=== PATIENT | male | born 1980 | race Caucasian/White ===

== ENCOUNTER 2016-12-31 20:29 | Inpatient (IN) | payer BC ==
[~2016-12-31] VITALS: Ht 175.3 cm; Wt 80.0 kg
[~2016-12-31 20:29] MED LIST changes: -ACETAMINOPHEN 500 MG TAB PO SCH; -ATROPINE SULFATE 0.1 MG/ML 5ML SYR IV PRN; -BUPIVACAINE/EPINEPHRINE 0.5% MPF 1:200,000 30 ML VIAL ONE; -CEFAZOLIN 2000 MG/60 ML D5W 60 ML IV SCH; -CISATRACURIUM BESYLATE IV SOLN 2 MG/ML 10 ML VIAL ONE; -DEXAMETHASONE SOD INJ 4 MG/ML VIAL ONE; -EpHEDrine SULFATE INJ 50 MG/ML AMP IV PRN; -FENTANYL CITRATE INJ 50 MCG/1 ML 2 ML VIAL ONE; -GLYCOPYRROLATE INJ 0.2 MG/ML VIAL ONE; -HYDROmorphone INJ 2 MG/ML SYR/VIAL IV PRN; -HYDROmorphone INJ 2 MG/ML SYR/VIAL ONE; -KETAMINE HCL INJ 50 MG/ML 10 ML VIAL ONE; -LACTATED RINGER'S 1000ML 1,000 ML IV SCH; -LACTATED RINGER'S 1000ML IV SCH; -LIDOCAINE HCL 2% 2 ML VIAL (20MG/ML) ONE; -MIDAZOLAM HCL 1 MG/ML 2ML VIAL ONE; -NEOSTIGMINE METHYLSULFATE 5 MG/5 ML SYR ONE; -ONDANSETRON INJ 2 MG/ML 2 ML VIAL IV PRN; -ONDANSETRON INJ 2 MG/ML 2 ML VIAL ONE; -OXYCODONE/ACETAMINOPHEN 5-325 TAB PO PRN; -PHENYLEPHRINE 100MCG/ML 5ML SYR IV PRN; -PHENYLEPHRINE 100MCG/ML 5ML SYR ONE; -PROPOFOL IV EMULSION 10 MG/ML 20 ML VIAL IV ONE; -SODIUM CHLORIDE 0.9% 1000ML 1,000 ML IV SCH; -SODIUM CHLORIDE 0.9% INJ 10 ML VIAL ONE
[2016-12-31 21:03] LABS: BASO % 0.1 %; BASO ABS # 0.01 K/uL (0-0.2); COMPLETE YES; HEMATOCRIT 48.4 % (42-52); IG% 0.3 %; LYMPH % 6.4 %; LYMPH ABS # 0.74 K/uL (1.2-3.4); MEAN CELL VOLUME 86.3 fL (80-100); MEAN CORPUSCULAR HEMOGLOBIN 31.6 pg (25-34); MEAN CORPUSCULAR HGB CONC 36.6 g/dl (32-36); MEAN PLATELET VOLUME 10.1 fL (7.4-10.4); MONO % 1.4 %; NEUT % 91.8 %; PLATELET COUNT 193 K/uL (130-400); RED BLOOD COUNT 5.61 M/uL (4.7-6.1); WHITE BLOOD COUNT 11.63 K/uL (4.8-10.8)
[2016-12-31 21:17] LABS: URINE APPEARANCE CLEAR (CLEAR); URINE BILIRUBIN NEG (NEG); URINE COLOR DK YELLOW; URINE NITRITE NEG (NEG); URINE SPECIFIC GRAVITY 1.024 (1.000-1.030); UROBILINOGEN NEG (NEG); ZZUR CULT IF INDIC CLEAN CATCH NO
[2016-12-31 21:18] LABS: MANUAL MICROSCOPIC REQUIRED? NO; REVIEW REQ? NO
[2016-12-31 21:27] LABS: BUN/CREATININE RATIO 12.9 (10-20); CALCIUM 9.1 mg/dl (8.5-10.1); POTASSIUM 3.7 mmol/L (3.5-5.1)
[2016-12-31 21:32] LABS: ACETAMINOPHEN < 2 ug/ml (10-30)
[2016-12-31] MEDS ORDERED: ACETAMINOPHEN 500 MG TAB PO STA (21:33)
[2016-12-31 21:38] LABS: BENZODIAZEPINE, URINE POS (NEG); COCAINE,URINE NEG (NEG); PHENCYCLIDINE, URINE NEG (NEG)
[2016-12-31 21:38] LABS: ALB/GLOB RATIO 1.3 (0.9-2); THYROID STIMULATING HORMONE 0.762 uIu/ml (0.300-4.500)
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
[2016-12-31] MEDS ORDERED: NURSING VERBAL MED ORDER ONE (22:45)
[2016-12-31 22:52] VITALS: O2SAT 97
[2016-12-31] MEDS ORDERED: BISMUTH SUBSALICYLATE PER ML OMNICELL CHARGE PO PRN (23:45)
[2016-12-31] MEDS ORDERED: MAGNESIUM HYDROXIDE SUSP 30 ML UDC PO PRN (23:45)
[2016-12-31] MEDS ORDERED: hydrOXYzine HCL 25 MG TAB PO PRN ×2 (23:45)
[2016-12-31] MEDS ORDERED: ALUMINUM/MAGNESIUM SUSP 30 ML UDC PO PRN (23:45)
[2016-12-31] MEDS ORDERED: SODIUM CHLORIDE 0.65% NA SOLN 45 ML (OCEAN) PRN (23:45)
[2017-01-01 00:08] VITALS: BP 139/65; PULSE 78; TEMP 36.9; Ht 175.3 cm; Wt 80.0 kg
[2017-01-01] MEDS: KETOROLAC TROMETHAMINE 10 MG TAB PO SCH ×5 (00:30→22:53)
[2017-01-01] MEDS ORDERED: NURSING VERBAL MED ORDER ONE ×2 (00:45)
[2017-01-01] MEDS ORDERED: KETOROLAC TROMETHAMINE 10 MG TAB PO STA (00:56)
[2017-01-01 06:37] VITALS: BP_SYST 113; BP_SYST 115; BP_DIAS 67; BP_DIAS 70; PULSE 66; PULSE 86; TEMP 36.6
[2017-01-01] MEDS: ACETAMINOPHEN 500 MG TAB PO PRN ×2 (11:05→17:10)
--- NOTE | 2017-01-01 15:57 | HISTORY & PHYSICAL EXAMINATION ---
DATE OF ADMISSION: 12/31/2016 IDENTIFYING INFORMATION: This is a 36-year-old but gentleman who was admitted to the [facility] on a voluntary status to behavioral health unit after concern for expressed suicidal ideation in the same day unit where he had been admitted for biceps tendon repair on 12/31/2016. Multiple contacts yesterday with a psychiatry liaison nurse and ER attending regarding his admission to this unit and the documentation of these encounters was reviewed. History also obtained from the patient on interview with questionable reliability. CHIEF COMPLAINT: "I really never had any intention of doing anything to myself. I guess it was an attempt to manipulate her." HISTORY OF PRESENT ILLNESS: Reviewing the ER note from last evening, patient presented for mental health evaluation for possible suicidal ideation that became apparent when his showed up following his surgery. Per 302 petitioning statement by patient's , he had made suicidal threatening statements over the course of the past month via text message at times and had stated to her yesterday that he would go to a hotel and kill himself, which prompted the 302. Per psych liaison nurse note 01/01/2017 at 00:44, the patient had indicated to his about 1 month ago that he wanted a divorce, felt trapped in the marriage, and about 1-2 weeks later disclosed that he was having an affair and she stated that she did not feel it was safe for the patient to leave the hospital in his current state of mind. He was cooperative and he initially denied making any statements about harming himself, denied symptoms of depression, changes in appetite, concentration, problems with anxiety for psychotic symptoms, acknowledged marital discord and arguing and indicated that he had been living with his grandfather and stated that he was going to his sister's postoperatively for a few days and she was going to pick him up. The liaison nurse spoke with the patient's sister who voiced some concern about his behavior recently as reported by her [id number] and apparently she encouraged her [id number] to fill out the 302 petitioning statement before. The liaison returned to see the patient later and he began that interaction by apologizing for not being honest initially and stated that he probably did make some comments about "might as well kill himself" because she would not let him alone. He admitted to numerous times arguing with her and feeling like his back was against a wall and making irrational statements in anger. He indicated that their restorationist beliefs preclude divorce, that he has been for 12 years, known since they were 6 years old. Same day instructions from surgery were noted to keep dressing on for 2-3 days and then can be removed, can take a shower and Band-Aids applied subsequently. Sling should be worn 24 hours a day for 6 weeks, icepacks applied 20 on, 40 off as needed and he was given scripts for Percocet p.r.n., which he has refused and Toradol 10 mg q. 8 hours with food for 5 days, which he has accepted. On interview, the patient states that he has been dissatisfied with his marriage for quite some time. He seems to be more inclined to work long hours and then the impact of that causes his to feel uncared for, which has been a longstanding pattern. He reports he is working 80-90 hours per week at a [employer] and he quit that job and took a job at [employer] about a year ago to reduce his hours and "she still was not happy." He describes her calling him, tearful, wondering where he is, which pushes him further away. He recounts a story regarding disclosure of desire for divorce about 6 weeks ago and then disclosing his affair 1-2 weeks after that similarly as above. However, he does include new information that friends of he and his had discovered his affair and essentially had forced him to disclose the affair to his . When he told her about the affair he expected her to tell him to get out and essentially that would be the end of the marriage, however that is not what happened, which seems to be confusing and vexing for him. He states repeatedly that he has made the decision to leave the marriage. He does make some comments about feeling guilty about the children and knowing how hard it must be caring for all 4 of the children at home. He states that he does not want to hurt his , but has felt frustrated that she is not willing to let him go. He acknowledges that he has made suicidal threats to her, but adamantly states that these stressor were only an effort to manipulate her into letting him out of the marriage. He repeatedly states that he has never had an intention to harm himself and actually is hopeful about his future in trying something different as he feels that he is no longer the person that his as a high school sweetheart. He tells me that he confabulated the story about trying to kill himself with alcohol in the hotel and his girlfriend saving him as a reason for not disclosing her identity to his . He supports this by describing that his grandfather and grandmother were in later life and she only ever spoke badly about his girlfriend to anyone that would listen and he did not want that to happen to his current girlfriend. He is uncertain if that relationship will progress, but he seems to desire to protect it. He denies symptoms of depression including sleep disturbance, anhedonia, crying spells, changes in appetite. He denies that he has ever seriously considered harming himself or anyone else. Denies self-injurious behaviors. Denies panic attacks. Denies free floating excessive anxiety at baseline. Denies symptoms that would be consistent with OCD, PTSD, hannah or psychosis. He is not interested in taking any antidepressants. He did recently reach out to a [employer] counselor through his mormonism 1-2 weeks ago but found the advice that he was given there was too dogmatic and not what he needed to hear, however he would like to pursue another form of counseling. PAST PSYCHIATRIC HISTORY: Essentially none. He has 1 brief contact with a [employer] counselor in recent weeks as per HPI, otherwise has never seen a psychiatrist or therapist, has never been treated with psychotropic medications. Denies a history of suicide attempt or self-injurious behavior. PAST MEDICAL HISTORY: PCP is Dr. Jaramillo. CHRONIC MEDICAL CONDITIONS: None. SURGICAL HISTORY: Includes bicep tendon repair and surgery for broken nose secondary to sporting injury. He denies a history of head injury, seizure, stroke, loss of consciousness. Denies history of obesity, hypertension, diabetes, cardiovascular disease, dyslipidemia. HOME MEDICATIONS: none. Currently prescribed Toradol 10 mg q. 8 hours t.i.d. x5 days following tendon repair. ALLERGIES: No known drug allergies. SUBSTANCE ABUSE HISTORY: The patient is a never smoker. He describes drinking 1-2 drinks a few times per month, unable to recall the last time of intoxication. Denies history of eye medical technologist. Denies history of feeling guilty, social or legal ramifications of alcohol use, never for a history of rehab. Denies any history of recreational drug use. SOCIAL HISTORY: The patient reports parents were somewhat demanding and can be kind of emotionally cool. 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 Denies history. Denies legal history, has never been arrested. 12 years. They were high school sweethearts. He has known her since he was 6 years old. They have a home in [place] that they share with their 2 adopted children, ages 5 and 5 adopted as an infant and there are 2 foster children, ages 18 months and 6 months as well in the home. He has been staying with his grandfather who lives in [place]. He attends [employer] weekly and identifies as Methodist. He denies any psychological history including abuse. FAMILY HISTORY: Negative for psychiatric history. He reports there is a history of diabetes in maternal grandmother. Otherwise, he denies a family history of obesity, hypertension, diabetes, cardiovascular disease, dyslipidemia or neurological illness. REVIEW OF SYSTEMS: Notable for mild discomfort at surgical site. Otherwise, 10-point review of systems negative except as per HPI. VITAL SIGNS: This morning temperature 36.6, pulse 66, respirations 16, blood pressure 115/67. LABORATORY DATA: Labs reviewed from time of admission, he shows a trace leukocytosis at 11.63, H&H within normal limits, platelets within normal limits. Chem panel showed only a slightly elevated random glucose of 154. TSH normal at 0.762. Toxicology panel was positive for opiates and benzodiazepines, which I believe are likely secondary to his anesthesia. PHYSICAL EXAMINATION: Reviewed from ER completed by Dr. Mcneal and felt appropriate for admission to behavioral health unit. MENTAL STATUS EXAMINATION: The patient is a reasonably well groomed gentleman whose head is shaved. He makes good eye contact. He is participatory in interview. He tends to speak rather abruptly and at times attempts to oversleep the interview. He demonstrates use of language within normal limits and articulation is good. He is not necessarily pressured in his speech but he is somewhat hyperverbal. Thought process appears without obvious delusions or loosening of associations. He does episodically apologize for things that he says. Thought content is negative for expressed suicidal or homicidal ideation. He does express some feelings of guilt and frustration regarding his marriage and circumstances. He denies being hopeless. There is no evidence of hallucinations. Insight appears fair. Impulse control appears likely below his typical baseline. Estimated level of intelligence at least average. Memory grossly intact in all spheres. Motor activity is negative for tremor or dyskinesia. She ambulates without assistance. He is wearing an arm sling over his left arm and appears in no acute distress. ASSESSMENT: This is a 36-year-old gentleman who desires to divorce his current and describes feeling trapped in that relationship. He postulates that she is trying to "reek havoc" for his refusal to recommit himself to that relationship at the present time. He adamantly denies that he has intended to harm himself or anyone else, but does acknowledge that he has made suicidal comments which he states were a "effort to manipulate her." DIAGNOSES: Mood disorder, unspecified; rule out adjustment reaction; partner relational problem. PLAN: 1. The patient admitted on a voluntary status and he will be encouraged to participate in unit programming as appropriate. 2. The patient does not appear to necessarily require pharmacologic intervention additionally for mood, but does require some support emotionally in a nonjudgmental way and assistance with decision making in efforts to reduce the emotional tension between he and his . 3. The patient was advised to refrain from any further alcohol use. 4. The patient will be maintained on the locked unit while we continue to explore self-harm potential. 5. The patient will be continued on the Toradol for postoperative pain and inflammation as directed by the surgeon. He will require outpatient followup for that. [id number] MTDD
[2017-01-02] MEDS: KETOROLAC TROMETHAMINE 10 MG TAB PO SCH ×3 (06:06→21:49)
[2017-01-02 06:38] VITALS: BP_SYST 127; BP_SYST 135; BP_DIAS 78; BP_DIAS 82; PULSE 73; PULSE 76; TEMP 36.5
[2017-01-02] MEDS: ACETAMINOPHEN 500 MG TAB PO PRN ×2 (12:21→23:43)
--- NOTE | 2017-01-02 12:22 | Psychiatric Progress Notes ---
Progress Note Date of Service Jan 02, 2017. Chief Complaint "To be honest I don't really think I need to be here. I'm trying to make the best of it." Subjective Patient was seen & assessed interval progress reviewed with Treatment Team. No acute events overnight. Continues to deny any suicidal ideation. As admitted to frustration with Aleta and feedback from advent members regarding his desire for divorce. He was visited by girlfriend last evening which reportedly went well and he showed a very bright affect in her presence. He is willing to meet with his sister and brother and arrangements are in place for family meeting tomorrow. On interview this morning he denies concerns apart from how long he will be here in the hospital. He does not perceive a significant therapeutic value so far. Reviewed admission circumstances and he expresses willingness for family meeting to facilitate communication and give us an opportunity to potentially identify concerns that are in his blind spot before discharge. He continues to deny any suicidal ideation and maintains that he was never actually thinking about harming himself. The shoulder is mildly uncomfortable. He is wearing his arm sling. Tolerating Toradol. Reviewed that he has been very active and reflected that he tends to be somewhat abrupt conversationally and I queried him again regarding signs and symptoms of hypomania or hannah. He was not able to readily identify a history of obvious mood cycles and does not perceive that his goal-directed activity and level of energy at baseline is abnormal. Review of Systems Constitutional: No fever Musculoskeletal: + problem reported (postsurgical pain mild) Psychiatric: No depression symptoms Sleep Information Total Hours of Sleep: 6.00 Meal Information Percent of Breakfast Consumed: 100 Percent of Lunch Consumed: 100 Percent of Dinner Consumed: 100 Mental Status Exam During interview pt is: alert and oriented, cooperative Appearance: appropriately dressed, appropriately groomed Eye contact is: good Motor behavior is: no abnormal motor movements Speech: other (speech is not pressured but can be abrupt and tends to interrupt ) Affect: other (calm) Mood is: other (pretty good) Thought process: goal directed, linear, logical, clear, coherent Thought content: reality based without delusions Suicidal thought are: denied Homicidal thoughts are: denied Hallucinations: denies auditory, denies visual Cognition: memory grossly intact, attention grossly intact, language grossly intact Intelligence estimated to be: average Insight: fair Judgement: fair Plan (1) Mood disorder 01/01 1. The patient admitted on a voluntary status and he will be encouraged to participate in unit programming as appropriate. 2. The patient does not appear to necessarily require pharmacologic intervention additionally for mood, but does require some support emotionally in a nonjudgmental way and assistance with decision making in efforts to reduce the emotional tension between he and his . 3. The patient was advised to refrain from any further alcohol use. 4. The patient will be maintained on the locked unit while we continue to explore self-harm potential. 5. The patient will be continued on the Toradol for postoperative pain and inflammation as directed by the surgeon. He will require outpatient followup for that. 01/02 - Patient continues to deny suicidal ideation. No clear indication for additional pharmacotherapy. We'll plan for family meeting with siblings tomorrow after which, if clinical status remains stable, can consider discharge with recommendation for outpatient psychotherapy follow-up Visit Code E&M Code: 93075 Data Vital Signs Last 24 Hrs: Date Time Temp Pulse Resp B/P (MAP) Pulse Ox O2 Delivery O2 Flow Rate FiO2 01/02/17 06:38 36.5 73 18 127/78 76 135/82 Meds Administered Last 24 Hrs: Meds Administered (Past 24Hrs) Medications (Trade) Dose Ordered Sig/Kianna Route Start Time Stop Time Status Last Admin Dose Admin Acetaminophen (Tylenol Tab) 1,000 mg NOW STAT PO 12/31/16 21:33 12/31/16 21:35 DC 12/31/16 21:50 1,000 MG Acetaminophen (Tylenol Tab) 1,000 mg Q6H PRN PO 12/31/16 23:45 01/30/17 23:44 01/01/17 17:10 1,000 MG Ketorolac Tromethamine (Toradol Tab) 10 mg Q8 PO 01/01/17 06:00 01/06/17 05:59 01/02/17 06:06 10 MG
[2017-01-03] MEDS: KETOROLAC TROMETHAMINE 10 MG TAB PO SCH ×2 (06:01→12:59)
[2017-01-03 06:59] VITALS: BP_SYST 115; BP_SYST 123; BP_DIAS 72; BP_DIAS 75; PULSE 68; PULSE 71; TEMP 36.3
[2017-01-03] MEDS: ACETAMINOPHEN 500 MG TAB PO PRN (09:03)
--- NOTE | 2017-01-03 10:19 | Discharge Instructions ---
Discharge Information Report Includes Report will include the: Discharge Instructions & Summary Admission Admission Date / Time: Dec 31, 2016 at 22:40 Reason for Admission: Mood Disorder Nos Discharge Discharge Diagnosis / Problem: Adjustment disorder with depressed mood Condition at Discharge: Good Discharge Goals Goal(s): Improve function, Improve disease control, Learn about illness, Therapeutic intervention Activity Recommendations Activity Limitations: per Instructions/Follow-up section (See surgical discharge instructions) . Instructions / Follow-Up Instructions / Follow-Up . SPECIAL CARE INSTRUCTIONS: 1. Follow through with your scheduled aftercare appointments. If unable to keep an appointment, please call to reschedule. 2. Take your medication only as prescribed. Medication should not be changed or stopped without the approval of your doctor. In the event of worsening symptoms or concerns about side effects, contact your doctor immediately. 3. Utilize new healthy coping skills, anger management skills, and stress management skills learned during your hospitalization. Journal feelings and process them with a support person. Identify stressors or situations that may result in relapse, deterioration or inappropriate behaviors and develop a plan to deal with those issues. 4. If your coping skills are ineffective and you are in crisis, contact your outpatient providers for direction. If unable to reach your providers, please call the CAN HELP LINE AT or go to the closest Emergency Room. 5. Avoid alcohol and un-prescribed drugs. 6. You have been provided with the Mental Health Advance Directives Pamphlet for your review. AFTERCARE APPOINTMENTS: * Please call your insurance company prior to your scheduled appointment to confirm your aftercare providers are covered. Take your insurance information to your appointments. . Discharge / Aftercare Planning . Follow-Up Care Plan for Follow-Up Care: See above. Current Hospital Diet Patient's current hospital diet: Regular Diet Discharge Diet Recommended Diet: Regular Diet Procedures Procedures Performed: No Pending Studies Pending Studies at Discharge: No Medical Emergencies . Who to Call and When: Medical Emergencies: For questions or emergencies related to your hospital stay, please contact the Inpatient Behavioral Health Unit at [phone]. A strategic client executive is on-call 15/11 for the Behavioral Health Unit for emergencies At any time you feel your situation is an emergency, you may also call 911 immediately. . Non-Emergent Contact Non-Emergency issues call your: Primary Care Provider, Therapist Past History Medical & Surgical History: (1) H/O shoulder surgery Advance Directives Existing Advance Directive: No Do You Have an Existing Mental: No Existing Living Will: No Existing Power of Automation Machine Operator: No Advance Directives Info Given: To Pt/S.O. Advance Directives Reason: Declines as Mental Health Visit. Discharge Summary Admission HPI Per the Admitting provider: Please see admission H&P. Admission Exam Per the Admitting provider: Please see admission H&P. Hospital Course (1) Mood disorder 01/01 1. The patient admitted on a voluntary status and he will be encouraged to participate in unit programming as appropriate. 2. The patient does not appear to necessarily require pharmacologic intervention additionally for mood, but does require some support emotionally in a nonjudgmental way and assistance with decision making in efforts to reduce the emotional tension between he and his . 3. The patient was advised to refrain from any further alcohol use. 4. The patient will be maintained on the locked unit while we continue to explore self-harm potential. 5. The patient will be continued on the Toradol for postoperative pain and inflammation as directed by the surgeon. He will require outpatient followup for that. 01/02 - Patient continues to deny suicidal ideation. No clear indication for additional pharmacotherapy. We'll plan for family meeting with siblings tomorrow after which, if clinical status remains stable, can consider discharge with recommendation for outpatient psychotherapy follow-up 01/03 - Most appropriate diagnosis is Adjustment disorder with depressed mood, as doesn't meet criteria for MDD. No indication for medication. - Family meeting with brother and sister scheduled for today. Recommend referral for outpatient psychotherapy. - Recommend no alcohol due to risk of worsening mood and impulsivity. (2) H/O shoulder surgery Follow surgeon's discharge instructions, and follow up with them. Risk Factors Assessment Male: Yes : Yes /single/: No Higher / Fall in social status: No Access to guns: No Health problems: No Mental Health Diagnoses: No Substance use disorders: No Previous attempt: No Family history of suicide: No Previous psychiatric stay: No Hopelessness: No Smoker: No Protective Factors Assessment Orthodox beliefs: Yes : Yes Responsible for young children: Yes Employed: Yes Stable relationships: Yes Supportive family: Yes Absence of risk factors above: Yes (risk factors were mitigated by admission to the inpatient unit, assessing for the presence of an Riner I psychiatric disorder (specifically depression), involving the patient in groups and therapy on the unit, family meeting with his sister and brother who are his support network, referring him for outpatient therapy, working on healthy coping skills and a discharge safety plan. He has consistently denied symptoms of major depression and suicidal thoughts here, is eating, sleeping, and performing ADLs independently, and is requesting discharge. As he is no longer at acute risk of harm to himself, he can be managed as an outpatient at this time.) Day of Discharge Assessment Hospital course: On admission, the patient denied symptoms consistent with a major depressive disorder, and no medications were indicated nor started. He discussed the stressors that led to the suicidal statements he made to his , including recently disclosing his affair, and wanting to end the marriage. He stated that his suicidal comments were made in order to manipulate his , as she has not wanted to let him go. He continued to deny suicidal thoughts throughout his stay, attended and participated in groups, interacted appropriately with staff and peers, and performed ADLs independently. He talked about his frustration with his feedback from caodaism members regarding his desire for divorce and their unwillingness to support that. His girlfriend visited him on the unit, and staff reported he had bright affect in her presence. He was willing for a meeting with his brother and sister. Day of discharge assessment: The patient continues to report that his mood is "good," and denies suicidal thoughts. He states that he believes his statements to his were taken out of context and triggered by the stress in their relationship, and believes that his completed a 302 petition in part because she was angry at him. He states he is trying to make the best of being in the hospital, although does not feel he needs to be here, and denies that he ever had a plan or intent to harm himself. He states he is planning to live with his sister after discharge , and his family is supportive. He is willing to follow-up with a therapist. He has not spoken to his since admission, and says he plans to use a family friend as a "spare person" when talking with her in the future. He is requesting discharge today after his family meeting. He denies any safety concerns with leaving the hospital. Well nourished, well developed WM appearing stated age. Casually dressed and adequately groomed. Calm and cooperative. Seated in NAD, with fair eye contact and no abnormal movements. Speech is normal rate, volume, and tone. Mood is "trying to make the best of it," and affect is stable and congruent. Thoughts are linear, logical and goal directed. The patient denied suicidal and homicidal ideation and was able to safety plan. No paranoia, delusions, or hallucinations, and did not appear to be responding to internal stimuli. Cognition was grossly intact. Alert and oriented to person, place and time. Intelligence is consistent with level of education. Insight and and judgment are fair. Laboratory Test 12/31/16 20:42 12/31/16 21:00 White Blood Count 11.63 Red Blood Count 5.61 Hemoglobin 17.7 Hematocrit 48.4 Mean Corpuscular Volume 86.3 Mean Corpuscular Hemoglobin 31.6 Mean Corpuscular Hemoglobin Concent 36.6 Platelet Count 193 Mean Platelet Volume 10.1 Neutrophils (%) (Auto) 91.8 Lymphocytes (%) (Auto) 6.4 Monocytes (%) (Auto) 1.4 Eosinophils (%) (Auto) 0.0 Basophils (%) (Auto) 0.1 Neutrophils # (Auto) 10.69 Lymphocytes # (Auto) 0.74 Monocytes # (Auto) 0.16 Eosinophils # (Auto) 0.00 Basophils # (Auto) 0.01 RDW Standard Deviation 38.3 RDW Coefficient of Variation 12.0 Immature Granulocyte % (Auto) 0.3 Immature Granulocyte # (Auto) 0.03 Sodium Level 136 Potassium Level 3.7 Chloride Level 105 Carbon Dioxide Level 24 Anion Gap 7.0 Blood Urea Nitrogen 13 Creatinine 1.00 Est Creatinine Clear Calc Drug Dose 103.2 Estimated GFR () 112.5 Estimated GFR (Non- 97.1 BUN/Creatinine Ratio 12.9 Random Glucose 154 Calcium Level 9.1 Total Bilirubin 0.8 Aspartate Amino Transferase (AST) 17 Alanine Aminotransferase (ALT) 28 Alkaline Phosphatase 76 Total Protein 6.8 Albumin 3.9 Globulin 2.9 Albumin/Globulin Ratio 1.3 Thyroid Stimulating Hormone (TSH) 0.762 Salicylates Level < 1.7 Acetaminophen Level < 2 Ethyl Alcohol mg/dL < 3.0 Urine Color DK YELLOW Urine Appearance CLEAR Urine pH 6.0 Urine Specific [place] 1.024 Urine Protein NEG Urine Glucose (UA) NEG Urine Ketones 1+ Urine Occult Blood NEG Urine Nitrite NEG Urine Bilirubin NEG Urine Urobilinogen NEG Urine Leukocyte Esterase NEG Urine Synthetic Stimulants Pending Urine Opiates Screen POS Urine Codeine Confirmation (GC/MS) Pending Urine Morphine Confirm (GC/MS) Pending Urine Hydrocodone Confirm (GC/MS) Pending Urine Norhydrocodone Pending Urine Noroxycodone Pending Urine Oxycodone Confirm (GC/MS) Pending Urine Oxymorphone Confirm (GC/MS) Pending Urine Methadone, Qualitative NEG Urine Hydromorphone Confirm (GC/MS) Pending Urine Barbiturates NEG Urine Phencyclidine (PCP) Level NEG Ur Amphetamine/Methamphetamine NEG MDMA (Ecstasy) Screen NEG Urine Hydroxyalprazolam Confirm Pending Urine Benzodiazepines Screen POS 7-Amino Clonazepam Level Pending Urine Nordiazepam Confirmation Pending Urine Hydroxyethylflurazepam Level Pending Urine Lorazepam (GC/MS) Pending Urine Oxazepam Confirm (GC/MS) Pending Urine Temazepam Confirmation Pending Urine Hydroxytriazolam Confirmation Pending Urine Hydroxymidazolam Confirmation Pending Urine Cocaine Metabolite NEG Cannabinoids Comment Pending Urine Synthetic Cannabinoids Pending Ur Synthetic Cannabinoids Confirm Pending Urine Marijuana (THC) NEG Total Time Total Time Spent (min): Greater than 30 minutes Total Time Included: examination of the patient, discharge planning, medication reconciliation Tobacco Cessation at Discharge Smoking Status: Never Smoker FDA approved Prescription: non-smoker
[2017-01-03 11:33] LABS: COD UR NEGATIVE NG/ML (CUTOFF=50); HYDROCOD UR NEGATIVE NG/ML (CUTOFF=50); HYDROMOR UR 861 NG/ML (CUTOFF=50); HYDROXYETHYLFLURAZEPAM CONF NEGATIVE NG/ML (CUTOFF=50); HYDROXYMIDAZOLAM >2000 NG/ML (CUTOFF=50); HYDROXYTRIAZOLAM CONF NEGATIVE NG/ML (CUTOFF=50); MORPHINE UR 55 NG/ML (CUTOFF=50); NORHYDROCODONE CONF UR NEGATIVE NG/ML (CUTOFF=50); OXYMORPH UR NEGATIVE NG/ML (CUTOFF=50); TEMAZEPAM CONF NEGATIVE NG/ML (CUTOFF=50)
[2017-01-09 11:37] LABS: SYNTHETIC CANNABINOIDS QL URIN NEGATIVE (Negative)
== END 2017-01-03 13:15 | disposition home or self-care (01) | DRG 881 ==
LOC: EDBD 20:29 → EDSEX 20:29 → C.EDA 20:31 → C.MHU 22:40
PROVIDERS: ADMIT Student in an Organized Health Care Education/Training Program; ATTEND Student in an Organized Health Care Education/Training Program
DX: F43.21 Adjustment disorder with depressed mood (principal); R45.851 Suicidal ideations; Z47.89 Encounter for other orthopedic aftercare; Z63.5 Disruption of family by separation and divorce; Z98.890 Other specified postprocedural states

== ENCOUNTER → 2016-12-31 | Day surgery (SDC) | payer BC ==
[2016-12-30 09:04] VITALS: BMI 26.0
--- NOTE | 2016-12-30 17:19 | HISTORY & PHYSICAL EXAMINATION ---
DATE OF ADMISSION: 12/31/2016 CHIEF COMPLAINT: Left pectoralis major tendon rupture. HISTORY OF PRESENT ILLNESS: Mark is a pleasant 36-year-old male, who was bench pressing on February 19 when he felt a pop in his left chest. He noticed an abnormality with a deformity of his pec. He came to my office and I sent him for an MRI with concerns over pectoralis tendon rupture. The MRI confirmed the tendon rupture off the humeral shaft and he has elected to proceed with a pectoralis tendon repair. PAST MEDICAL HISTORY: Denies. PAST SURGICAL HISTORY: Septoplasty. ALLERGIES: None. MEDICATIONS: None. FAMILY HISTORY: Noncontributory. SOCIAL HISTORY: He is . He has 1-2 drinks per week. He denies any tobacco or IV drug use. He is active. REVIEW OF SYSTEMS: He complains of left chest pain. All other pertinent review of systems are negative. PHYSICAL EXAMINATION: GENERAL: He is awake, alert and oriented x3. He is in no apparent distress. He is very pleasant. HEENT: Pupils are equal, round and reactive to light. Extraocular motion intact. Oral mucosa is pink and moist. HEART: Regular rate per radial pulse. LUNGS: Katrina symmetrically bilaterally with no audible breath sounds. ABDOMEN: Soft, nontender, and nondistended. MUSCULOSKELETAL: On physical examination of the left chest, he has a significant abnormality. There is an area of ecchymosis in the left axillary region. He has a full range of motion and strength of the shoulder. MRI of the left shoulder does show complete pectoralis tendon rupture and the tendon torn directly off the humeral shaft. IMPRESSION: Left pectoralis tendon rupture. PLAN: We will proceed with an open pectoralis tendon repair. Postoperatively, he will be placed in an arm sling and discharged to home on oral pain medications.
[~2016-12-31] VITALS: Ht 175.3 cm; Wt 79.8 kg
[~2016-12-31] MED LIST: ACETAMINOPHEN 500 MG TAB PO SCH; ASPI-390 PO; ATROPINE SULFATE 0.1 MG/ML 5ML SYR IV PRN; BUPIVACAINE/EPINEPHRINE 0.5% MPF 1:200,000 30 ML VIAL ONE; CEFAZOLIN 2000 MG/60 ML D5W 60 ML IV SCH; CISATRACURIUM BESYLATE IV SOLN 2 MG/ML 10 ML VIAL ONE; DEXAMETHASONE SOD INJ 4 MG/ML VIAL ONE; EpHEDrine SULFATE INJ 50 MG/ML AMP IV PRN; FENTANYL CITRATE INJ 50 MCG/1 ML 2 ML VIAL ONE; GLYCOPYRROLATE INJ 0.2 MG/ML VIAL ONE; HYDROmorphone INJ 2 MG/ML SYR/VIAL IV PRN; HYDROmorphone INJ 2 MG/ML SYR/VIAL ONE; KETAMINE HCL INJ 50 MG/ML 10 ML VIAL ONE; KETO10TA PO; LACTATED RINGER'S 1000ML 1,000 ML IV SCH; LACTATED RINGER'S 1000ML IV SCH; LIDOCAINE HCL 2% 2 ML VIAL (20MG/ML) ONE; MIDAZOLAM HCL 1 MG/ML 2ML VIAL ONE; NEOSTIGMINE METHYLSULFATE 5 MG/5 ML SYR ONE; ONDANSETRON INJ 2 MG/ML 2 ML VIAL IV PRN; ONDANSETRON INJ 2 MG/ML 2 ML VIAL ONE; OXYC-57 PO; OXYCODONE/ACETAMINOPHEN 5-325 TAB PO PRN; PHENYLEPHRINE 100MCG/ML 5ML SYR IV PRN; PHENYLEPHRINE 100MCG/ML 5ML SYR ONE; PROPOFOL IV EMULSION 10 MG/ML 20 ML VIAL IV ONE; SODIUM CHLORIDE 0.9% 1000ML 1,000 ML IV SCH; SODIUM CHLORIDE 0.9% INJ 10 ML VIAL ONE
--- NOTE | 2016-12-31 12:05 | History & Physical Bridge Note ---
H&P Re-Evaluation Bridge Note: I have examined the patient, reviewed the History & Physical and in the interval since the performance of the History & Physical I have noted the following changes of clinical significance: No changes noted
[2016-12-31 13:30] VITALS: BP 132/72; PULSE 84; TEMP 36.8; O2SAT 95; BMI 26.0
[2016-12-31 14:08] LABS: HEMATOCRIT 49.6 % (42-52); MEAN CELL VOLUME 86.6 fL (80-100); MEAN CORPUSCULAR HEMOGLOBIN 31.4 pg (25-34); MEAN PLATELET VOLUME 10.4 fL (7.4-10.4); PLATELET COUNT 202 K/uL (130-400); RED BLOOD COUNT 5.73 M/uL (4.7-6.1); WHITE BLOOD COUNT 7.48 K/uL (4.8-10.8)
[2016-12-31 14:12] VITALS: BP 132/72; TEMP 36.8; O2SAT 95; Ht 175.3 cm; Wt 79.8 kg
[2016-12-31 14:12] LABS: MEAN CORPUSCULAR HGB CONC 36.3 g/dl (32-36)
--- NOTE | 2016-12-31 16:45 | [facility] Post Operative Brief Note ---
Immediate Operative Summary Operative Date Dec 31, 2016. Pre-Operative Diagnosis : Left pectoralis tendon rupture Post-Operative Diagnosis Same Procedure(s) Performed Left pectoralis Major repair Surgeon Dr Dimas Barrel Rib Matting Machine Operator Surgeon(s) Sadaf SAM Estimated Blood Loss 20 ml Findings as above Specimens None Complication(s) None Disposition Recovery Room / PACU
--- NOTE | 2016-12-31 16:56 | Discharge Instructions ---
Discharge Instructions Date of Service Dec 31, 2016. Admission Reason for Admission: Rupture of Pectoralis Major Muscles Discharge Discharge Diagnosis / Problem: SAME ABOVE Discharge Goals Goal(s): Decrease discomfort, Improve function Activity Recommendations Activity Limitations: as noted below Lifting Limitations: until after follow-up appointment Exercise/Sports Limitations: until after follow-up appointment Shower/Bathe: may shower/bathe in 3 days . Instructions / Follow-Up Instructions / Follow-Up MEDICATIONS: * Resume previous medications unless instructed otherwise by your surgeon. * Always take pain medication on a full stomach or with food to avoid upset stomach. * Do not drink alcohol or drive while taking narcotics. * Ibuprofen or Tylenol may be taken if narcotic not needed. SPECIAL CARE INSTRUCTIONS: __ None _X_ Keep extremity elevated and iced x 48 hours; apply ice 20-30 minutes 8-10 times/day. May remove at night. _X_ Sling (MAY REMOVE ONLY TO SHOWER AND FOR PHYSICAL THERAPY) _X_24 hrs/day __ Remove at night __ Shoulder Immobilizer __ 24 hrs/day __ Remove at night _X_ Dressing __ Maintain until seen in office, may shower with plastic over site _X_ Remove dressings in 24-48 hours and then may shower _X_ Cover incisions with band-aids after showering __ Do not remove steri-strips Call physician if chills or temperature rises above 102 degrees or pain unrelieved by prescribed pain medications at . . Current Hospital Diet Patient's current hospital diet: Discharge Diet Recommended Diet: Regular Diet Fluid Restriction: None Procedures Procedures Performed: Left pectoralis Major repair Pending Studies Studies pending at discharge: no Work Instructions Return To Work: after follow-up (OR MAY RETURN WHILE IN THE SLING. NO LIFTING WITH LEFT ARM ) Lifting Limitations: NO LIFTING WITH LEFT ARM Medical Emergencies . Who to Call and When: Medical Emergencies: If at any time you feel your situation is an emergency, please call 911 immediately. . Non-Emergent Contact Non-Emergency issues call your: Primary Care Provider Call Non-Emergent contact if: you have a fever, temperature is above 101.5 . "Provider Documentation" section prepared by Osvaldo Miranda. . VTE Core Measure Inpt VTE Proph given/why not?: Treatment not indicated
--- NOTE | 2016-12-31 17:15 | Anesthesiology Progress Note ---
Anesthesia Post Op Note Date & Time Dec 31, 2016 at 17:14 Vital Signs Pain Intensity: 0 Vital Signs Past 12 Hours Date Time Temp Pulse Resp B/P (MAP) Pulse Ox O2 Delivery O2 Flow Rate FiO2 12/31/16 16:56 36.6 88 18 141/100 100 Mask 10 12/31/16 14:12 36.8 18 132/72 (92) 95 Room Air 12/31/16 13:30 36.8 84 18 132/72 (92) 95 Room Air Notes Mental Status: alert / awake / arousable, participated in evaluation Pt Amnestic to Procedure: Yes Nausea / Vomiting: adequately controlled Pain: adequately controlled Airway Patency, RR, SpO2: stable & adequate BP & HR: stable & adequate Hydration State: stable & adequate Anesthetic Complications: no major complications apparent
[2016-12-31 17:36] VITALS: BP 155/62; PULSE 75; TEMP 36.4; O2SAT 98
[2016-12-31 18:05] VITALS: BP 137/75; PULSE 88; O2SAT 100
[2016-12-31 18:35] VITALS: BP 119/66; PULSE 77; TEMP 37.1; O2SAT 98
--- NOTE | 2016-12-31 18:49 | OPERATIVE REPORT ---
DATE OF OPERATION: 12/31/2016 PREOPERATIVE DIAGNOSIS: Left pectoralis tendon rupture. POSTOPERATIVE DIAGNOSIS: Same. PROCEDURE: Open left pectoralis tendon repair. SURGEON: Dr. Parish Dimas. ELEVATOR PILOT: Landon Miranda PA-C, whose assistance was necessary for positioning of the arm and helping with retraction and instrumentation. ANESTHESIA: General. COMPLICATIONS: None. CONDITION: Stable to PACU. INDICATIONS: Mark is a pleasant 36-year-old male who ruptured his left pec major tendon while bench pressing last week. MRI showed a complete pec tendon tear. He elected to undergo an open repair. DESCRIPTION OF PROCEDURE: On 12/31/2014, he arrived at [facility] for the above procedure. He was seen in the preoperative holding area and the operative extremity was identified and signed. He was given a preoperative antibiotic and taken back to the operating room, laid on the table in supine position and put under general anesthesia. He was then put into the beachchair position. The left shoulder was prepped and draped in sterile fashion. Time-out was done and the patient and operative extremity was properly identified. An axillary incision was made. Dissection was taken down through the clavipectoral fascia and the clavicular head of the pec major was exposed. The sternal head was torn and retracted back. A large seroma was evacuated. The wound was irrigated. The sternal head was controlled with Allis clamps and 3 FiberTape sutures were passed through the tendon in a Krackow fashion. Humeral cortex just lateral to the biceps tendon was prepared with a high speed bur. Three drill holes were then made. An Arthrex Pec button was then placed on the tails of each of these 3 FiberTape sutures. The Pec buttons were then passed through the hole in the cortex and flipped. A tension slide technique was used to deliver the pec tendon to its original insertion. The fiber tapes were then tied tightly with a knot pusher. The tails were then cut. This was able to get a nice repair of the entire pec tear. The wound was then irrigated and closed with 3-0 Vicryl and 3-0 V-Loc suture and rakesh. He was placed in a soft dressing and then shoulder immobilizer. He was then extubated, transferred to a [facility] and taken to the postanesthesia care unit in stable condition. He tolerated the procedure well. I attest to the content of the Intraoperative Record and any orders documented therein. Any exception s are noted below.
== END | disposition home or self-care (01) ==
LOC: C.ACU 13:15
PROVIDERS: ATTEND Orthopaedic Surgery
DX: S29.011A Strain of muscle and tendon of front wall of thorax, initial encounter (principal); X50.0XXA Overexertion from strenuous movement or load, initial encounter; Y93.B9 Activity, other involving muscle strengthening exercises